=== PATIENT | male | born 1955 | race Caucasian/White ===

== ENCOUNTER 2020-04-02 14:29 | Emergency (ER) | payer OTHER ==
[~2020-04-02] VITALS: Ht 190.5 cm; Wt 122.9 kg
[~2020-04-02 14:29] MED LIST: CEPHALEXIN500 MG PO; METFORMIN HCL500 MG PO; METOPROLOL TART25 MG PO; TOUJEO SOL300 UNIT/1 SQ
[2020-04-02] MEDS ORDERED: LISINOPRIL10 MG PO (14:56)
[2020-04-02] MEDS ORDERED: LOVASTATIN20 MG PO (14:57)
== END 2020-04-02 18:51 | disposition home or self-care (01) ==
LOC: ED 14:29
DX: S61.211A Laceration without foreign body of left index finger without damage to nail, initial encounter (principal); W26.8XXA Contact with other sharp object(s), not elsewhere classified, initial encounter; E11.9 Type 2 diabetes mellitus without complications; I10 Essential (primary) hypertension; Z79.899 Other long term (current) drug therapy; Z79.4 Long term (current) use of insulin
CPT/HCPCS: 12002; 73140; 90471; 90715; 99283-25

== ENCOUNTER 2024-02-19 08:08 | Emergency (ER) | payer MEDICARE, BC ==
[~2024-02-19] VITALS: Ht 190.5 cm; Wt 116.0 kg
[~2024-02-19 08:08] MED LIST changes: +LISINOPRIL10 MG PO; +LOVASTATIN20 MG PO; -TOUJEO SOL300 UNIT/1 SQ; +TOUJEO SOL300 UNIT/1 SUB-Q
[2024-02-19] MEDS ORDERED: LISINOPRIL20 MG PO (08:25)
[2024-02-19] MEDS ORDERED: METFORMIN HCL1000 MG PO (08:25)
[2024-02-19] MEDS ORDERED: TETRACAINE HCL 0.5% 4 ML BTL OD SCH (08:30)
[2024-02-19 08:36] LABS: BASOPHILS 0.7 % (0-2); EOSINOPHILS 0.7 % (0-6); HEMATOCRIT 43.5 % (35.0-50.0); HEMOGLOBIN 15.2 g/dL (12.0-18.0); LYMPHOCYTES 16.5 % (24-44); MCH 31.7 (27-36); MCHC 34.8 g/dl (30-36); MONOCYTES 5.9 % (0-12); NEUTROPHILS 76.2 % (39-80); PLATELET COUNT 209 K/uL (140-440); RBC 4.78 M/ul (4.3-5.7); RDW 13.4 (10.5-15.0)
[2024-02-19 08:51] LABS: INR 1.09 (0.80-1.30); PROTIME 13.4 Sec (11.2-14.2)
[2024-02-19 09:05] LABS: ALBUMIN 3.7 g/dL (3.4-5.0); ALBUMIN/GLOBULIN RATIO 1.09 (1.1-2.4); ANION GAP 14.3 (7-21); BILIRUBIN, TOTAL 0.6 ng/dL (0.2-1.0); BUN/CREATININE RATIO 18.42 (6.0-28.6); CALCIUM 8.9 mg/dL (8.5-10.1); CREATININE, SERUM 0.76 mg/dL (0.70-1.30); POTASSIUM 4.3 mmol/L (3.5-5.1); PROTEIN, TOTAL 7.1 g/dL (6.4-8.2)
[2024-02-19] MEDS ORDERED: HYDROCODON-ACE1 EA10 PO (12:48)
[2024-02-19] MEDS ORDERED: HYDROCODONE/ACETA 5/325 TAB PO ONE (13:00)
[2024-02-19] MEDS ORDERED: ONDANSETRON 4 MG TAB ODT SL ONE (13:00)
[2024-02-19 13:04] VITALS: BP 154/90
--- NOTE | 2024-02-20 19:40 | EKG ---
[facility] [address] [facility] [place], [place] [address] Signed Sinus bradycardia Otherwise normal ECG No previous ECGs available Confirmed by Richie Galdamez MD ([id number]) on 02/20/2024 7:40:30 PM Electronically Signed By: RICHIE GALDAMEZ MD 02/20/241939 PATIENT NAME: [id number] Electrocardiogram DATE OF : 55 PHYSICIAN: RICHIE GALDAMEZ MD REPORT #: [id number] REPORT IS CONFIDENTIAL AND NOT TO BE RELEASED WITHOUT AUTHORIZATION
== END 2024-02-19 13:06 | disposition home or self-care (01) ==
LOC: ED 08:08
PROVIDERS: Emergency Medicine
DX: H57.12 Ocular pain, left eye (principal); I10 Essential (primary) hypertension; E11.9 Type 2 diabetes mellitus without complications; Z79.899 Other long term (current) drug therapy; Z79.4 Long term (current) use of insulin; Z79.84 Long term (current) use of oral hypoglycemic drugs
CPT/HCPCS: 36415; 70450; 70496; 70498; 80053; 85025; 85610; 85651; 86140; 93005; 93010; 99284-25; A9270; Q9967